=== PATIENT | male | born 1955 | race Caucasian/White ===

== ENCOUNTER 2022-11-24 17:25 | Inpatient (IN) | payer BC ==
[~2022-11-24] VITALS: Ht 182.9 cm; Wt 134.2 kg
--- NOTE | 2022-11-24 20:08 | NUR ---
PATIENT IS A DIRECT ADMIT ARRIVED VIA AMBULANCE [facility]. ONE ASSIST TRANSFER FROM [facility] TO BED. ALERT AND ORIENTED. DENIES CHEST PAIN, SOB, AND N/V. ON ROOM AIR. ORIENTED TO ROOM AND CALL LIGHT. WAITING FOR DR ROBERT ASSESSMENT AND ORDERS.
[2022-11-24 20:41] VITALS: BP 114/50
[2022-11-24 22:19] LABS: Hematocrit 39.1 % (37.0-53.0); Hemoglobin 13.6 g/dL (13.5-17.5); Mean Corpuscular HGB Conc 34.8 g/dL (31.5-36.5); Mean Corpuscular Volume 89 fL (80-100); Mean Platelet Volume 10.9 fL (9.1-12.4); Platelet Count 238 K/mm3 (150-400); RDW Coefficient Variation 13.2 % (11.7-14.2); RDW Standard Deviation 43.6 fL (35.1-46.3); Red Blood Cell Count 4.39 M/mm3 (4.30-5.90)
[2022-11-24 22:40] LABS: Albumin, Blood 1.6 g/dL (3.4-5.0); Albumin/Globulin Ratio 0.3 (0.8-1.8); Bilirubin, Total 2.3 mg/dL (0.1-1.0); Bun/Creatinine Ratio 22.1 (12.0-20.0); Calcium, Blood 8.2 mg/dL (8.5-10.1); Creatinine, Blood 3.08 mg/dL (0.60-1.20); Globulin, Blood 4.9 g/dL (2.2-4.0); Potassium, Blood 3.7 mmol/L (3.5-5.5); Total Protein, Blood 6.5 g/dL (6.4-8.2)
[2022-11-24 22:48] LABS: BAND PERCENT MAN 14 % (0-8); BASOPHILS PERCENT MAN 0 % (0-2); EOSINOPHILS PERCENT MAN 0 % (0-6); LYMPHOCYTES ABSOLUTE MAN 1.65 K/mm3 (0.84-5.20); LYMPHOCYTES PERCENT MAN 6 % (21-46); MONOCYTES ABSOLUTE MAN 0.27 K/mm3 (0.16-1.47); MONOCYTES PERCENT MAN 1 % (4-13); MYELOCYTE ABSOLUTE MAN 0.55 K/mm3 (0.00-0.00); MYELOCYTE PERCENT MAN 2 % (0-0); NEUTROPHILS ABSOLUTE MAN 25.11 K/mm3 (1.96-9.15); SEG NEUTROPHILS PERCENT MAN 77 % (41-73); TOTAL CELLS COUNTED 100
--- NOTE | 2022-11-24 23:35 | NUR ---
RESIDENT DR JESSENIA WOLFF IN ROOM FOR ASSESSMENT AND ORDERS. CRITICAL LAB cH: HYUN 3.4 CALLED INTO HOSPITALIST KAILASH ALTAMIRANO AND REPORTS CONTINUE TO MONITOR. IV VANCO INFUSING. WCTM.
--- NOTE | 2022-11-25 04:10 | NUR ---
SHIFT SUMMARY PATIENT HAD NO ACUTE CHANGES. DIRECT ADMIT FROM ANA. AXOX 4, BEDREST, AND ANXIOUS. NEW PIV PLACED AND IV ABX INFUSED. ON ROOM AIR. RESIDENT DR TONI WOLFF IN FOR ASSESSMENT. DENIES CHEST PAIN, SOB, AND N/V. VSS/AFEBRILE. USES URINAL AT BEDSIDE. BLE CELLULITIS BELOW KNEES WITH MILD WEEPING. REPORTS LIVES WITH SPOUSE IN REEDSPORT. ABLE TO SLEEP MOST OF SHIFT. CALL LIGHT IN REACH. BED IN LOWEST POSITION. WILL CONTINUE TO MONITOR UNTIL DAY SHIFT NURSE ASSUMES CARE.
[2022-11-25 04:20] VITALS: BP 91/54
[2022-11-25 08:05] VITALS: BP 111/95
[2022-11-25 09:56] LABS: Calcium, Blood 7.9 mg/dL (8.5-10.1); Creatinine, Blood 3.04 mg/dL (0.60-1.20); Potassium, Blood 3.5 mmol/L (3.5-5.5)
[2022-11-25 10:15] LABS: Source, Urine Straight Cath
[2022-11-25 10:24] LABS: Bilirubin, Urine Neg (Neg); Blood, Urine 3+ (Neg); Glucose Qualitative, Urine Neg (Neg); Ketones, Urine Neg (Neg); Leukocyte Esterase, Urine Neg (Neg); Nitrite, Urine Neg (Neg); Protein, Urine 2+ (Neg); Specific Gravity, Urine 1.015 (1.003-1.022); Urobilinogen, Urine 1+ (Normal)
[2022-11-25 10:45] LABS: Appearance, Urine Clear (Clear); Color, Urine Yellow (P-Yellow)
[2022-11-25 10:47] LABS: Bacteria Mod /hpf; Mucus Mod (0-Heavy); Squamous Epithelial Cells Mod /hpf (Few); White Blood Cells, Urine 0-2 /hpf (0-5)
[2022-11-25 13:08] LABS: Magnesium, Blood 2.1 mg/dL (1.6-2.4); Phosphorus, Blood 4.6 mg/dL (2.5-4.9); Thyroid Stimulating Hormone 0.628 uIU/mL (0.360-4.800); Vancomycin, Random 26.4 ug/mL
[2022-11-25 16:25] VITALS: BP 93/57
--- NOTE | 2022-11-25 18:19 | NUR ---
PATIENT AOX4 RESTING IN BED, 2 PERSON MAX ASSIST, USES URINAL INDEPENDENTLY, BED INLOW POSITION, CALL LIGHT IN REACH. PATIENT CALLS APPROPRIATELY. C/O HEADACHE AND LEG PAIN THROUGHOUT DAY, MANAGED PER EMAR. WILL CONTINUE TO MONITOR.
[2022-11-25 19:33] VITALS: BP 107/92
[2022-11-25 20:21] LABS: Base Excess Venous -5.3 mmol/L; Bicarbonate Venous 20.4 mmol/L (24.0-30.0); PCO2 Venous 35.2 mmHg (38-42); pH Blood Venous 7.37 (7.34-7.37)
[2022-11-25 21:47] LABS: Magnesium, Blood 2.2 mg/dL (1.6-2.4); Potassium, Blood 3.3 mmol/L (3.5-5.5)
[2022-11-25 22:12] VITALS: BP 95/60
[2022-11-25 22:30] VITALS: BP 105/74
--- NOTE | 2022-11-25 22:34 | NUR ---
NURST NOTE--PHYSICIAN CONTACT PT HAVING SOFT BLOOD PRESSURE, ELEVATED HR, AND INCREASED RESPIRATIONS. CALL TO COMMUNITY DEVELOPMENT SPECIALIST DR LINDER X3; NEW ORDER FOR TELE AND VBG. CALL DR Ivey/RESULTS. NEW ORDER FOR IV METOPROLO 2.5-5MG AND EKG--NOTIFED DR OF EKG RESULTS. NEW ORDER FOR POTASSIUM 40 MEQ PO NOW AND 40 POT IV NOW. ORDER FOR TROPONIN LEVELS NOW AND IN 2HRS. ADVISED PT IS HAVING INDIGESTION AND PERSISTENT BLELCHING, PALE, AND UPDATED CURRENT VITALS. DR GOMEZ WOULD COME AND SEE PATIENT.
[2022-11-26] VITALS (44 sets, daily range): BP systolic 73–131; BP diastolic 40–95
[2022-11-26 00:55] LABS: Hematocrit 34.5 % (37.0-53.0); Mean Corpuscular HGB 31.3 pg (26.0-34.0); Mean Corpuscular HGB Conc 34.8 g/dL (31.5-36.5); Mean Corpuscular Volume 90 fL (80-100); Mean Platelet Volume 11.3 fL (9.1-12.4); Platelet Count 284 K/mm3 (150-400); RDW Coefficient Variation 13.2 % (11.7-14.2); RDW Standard Deviation 43.7 fL (35.1-46.3); Red Blood Cell Count 3.83 M/mm3 (4.30-5.90); White Blood Cell Count 26.34 K/mm3 (4.00-11.30)
[2022-11-26 01:16] LABS: Albumin, Blood 1.4 g/dL (3.4-5.0); Albumin/Globulin Ratio 0.3 (0.8-1.8); Bilirubin, Total 1.5 mg/dL (0.1-1.0); Bun/Creatinine Ratio 30.7 (12.0-20.0); Calcium, Blood 7.8 mg/dL (8.5-10.1); Globulin, Blood 4.8 g/dL (2.2-4.0); Potassium, Blood 3.4 mmol/L (3.5-5.5); Total Protein, Blood 6.2 g/dL (6.4-8.2)
[2022-11-26 01:19] LABS: BAND PERCENT MAN 16 % (0-8); BASOPHILS PERCENT MAN 0 % (0-2); EOSINOPHILS PERCENT MAN 0 % (0-6); LYMPHOCYTES ABSOLUTE MAN 1.84 K/mm3 (0.84-5.20); LYMPHOCYTES PERCENT MAN 7 % (21-46); MONOCYTES ABSOLUTE MAN 0.79 K/mm3 (0.16-1.47); MONOCYTES PERCENT MAN 3 % (4-13); MYELOCYTE ABSOLUTE MAN 0.26 K/mm3 (0.00-0.00); MYELOCYTE PERCENT MAN 1 % (0-0); NEUTROPHILS ABSOLUTE MAN 23.17 K/mm3 (1.96-9.15); PLASMA CELL ABSOLUTE MAN 0.26 K/mm3 (0.00-0.00); PLASMA CELLS PERCENT MAN 1 % (0-0); SEG NEUTROPHILS PERCENT MAN 72 % (41-73); TOTAL CELLS COUNTED 100
[2022-11-26 03:31] LABS: Hematocrit 30.9 % (37.0-53.0); Hemoglobin 11.3 g/dL (13.5-17.5); Mean Corpuscular HGB 31.7 pg (26.0-34.0); Mean Corpuscular HGB Conc 36.6 g/dL (31.5-36.5); Mean Corpuscular Volume 87 fL (80-100); Mean Platelet Volume 11.4 fL (9.1-12.4); Platelet Count 290 K/mm3 (150-400); RDW Coefficient Variation 13.1 % (11.7-14.2); RDW Standard Deviation 41.6 fL (35.1-46.3); Red Blood Cell Count 3.56 M/mm3 (4.30-5.90); White Blood Cell Count 27.54 K/mm3 (4.00-11.30)
[2022-11-26 03:39] LABS: Anion Gap 10 mmol/L (6-16); Blood Urea Nitrogen 89 mg/dL (8-24); Bun/Creatinine Ratio 30.6 (12.0-20.0); CO2, Blood 21 mmol/L (21-32); Calcium, Blood 7.7 mg/dL (8.5-10.1); Chloride, Blood 99 mmol/L (98-108); Creatinine, Blood 2.91 mg/dL (0.60-1.20); Glomerular Filtration Rate 23 (60-); Glucose, Blood 93 mg/dL (70-99); Potassium, Blood 3.9 mmol/L (3.5-5.5); Sodium, Blood 130 mmol/L (136-145); Vancomycin, Random 19.6 ug/mL
[2022-11-26 03:58] LABS: BAND PERCENT MAN 14 % (0-8); BASOPHILS PERCENT MAN 0 % (0-2); EOSINOPHILS PERCENT MAN 0 % (0-6); LYMPHOCYTES PERCENT MAN 4 % (21-46); MONOCYTES PERCENT MAN 4 % (4-13); MYELOCYTE ABSOLUTE MAN 0.55 K/mm3 (0.00-0.00); MYELOCYTE PERCENT MAN 2 % (0-0); NEUTROPHILS ABSOLUTE MAN 24.51 K/mm3 (1.96-9.15); PLASMA CELL ABSOLUTE MAN 0.27 K/mm3 (0.00-0.00); PLASMA CELLS PERCENT MAN 1 % (0-0); SEG NEUTROPHILS PERCENT MAN 75 % (41-73); TOTAL CELLS COUNTED 100
--- NOTE | 2022-11-26 06:00 | NUR ---
SHIFT SUMMARY ASSUMED CARE OF PATIENT TRANSFER FROM MEDICAL FLOOR FOR HYPOTENSION. UPON ARRIVAL, PATIENT A/0X4, RESTLESS, COOPERATIVE. NORMOTENSIVE; SBP 100-120S. FINISHED 250CC BOLUS THAT WAS STARTED ON PREVIOUS UNIT. CONTINUES IN AFIB, HR 90-120S. AFEBRILE. ROOM AIR. MAR WITH WHEEZING AND TACHYPNEA. ADEQUATE URINE OUTPUT VIA URINAL. BLE SWOLLEN, REDDENED, PAINFUL. GIVEN PRN OXYCODONE X1 WITH RELIEF. DAUGHTER CALLED AND VOICEMAIL LEFT PERTAINING TO PATIENT'S TRANSFER TO ICU. PATIENT STABLE AT THIS TIME.
--- NOTE | 2022-11-26 07:10 | NUR ---
Assumed care. Report received from amrik TOPETE. Pt resting in bed ATT, on RA, no acute needs. Will continue to monitor.
--- NOTE | 2022-11-26 18:13 | NUR ---
Shift summary. Pt continues alert and oriented. Pt elected to stay in bed this shift, pt very painful with movement, see EMAR for pain meds. Pt reported the most pain relief with roxicodone administration. BLE remain swollen and red with skin sloughing off, LLE affected more than right. Pt started on po carvedilol with good response, HR below 100 ATT. All other vital signs within normal parameters, no acute events. See assessment for further details. Will continue to monitor and report off to amrik TOPETE.
[2022-11-27] VITALS (8 sets, daily range): BP systolic 95–134; BP diastolic 48–75
--- NOTE | 2022-11-27 04:32 | NUR ---
SHIFT SUMMARY/TRANSFER OF CARE AT START OF SHIFT, PATIENT ALERT AND ORIENTED X4. PLEASANT, COOPERATIVE. MONITOR SHOWING AFIB, HR 80S. SBP 90-100S; MAPs >65. CONTINUES TO HAVE +3/+4 EDEMA TO BLE. AFEBRILE. ROOM AIR. DYSPNEA ON EXERTION WITH EXP WHEEZES. C/O NAUSEA, GIVEN ZOFRAN X1. PROGRESSED TO LOWER ABDOMINAL PAIN/CRAMPING, WHICH WAS RELIEVED WITH PRN FENTANYL. ADEQUATE URINE OUTPUT VIA FORTUNE. DRESSING TO RIGHT UPPER THIGH CHANGED. OXYCODONE MANAGING LOWER EXTREMITY PAIN WELL, PER PATIENT. TRANSFERRED TO PCU 17 @ 0300 IN NO ACUTE DISTRESS. NO FURTHER CONCERNS.
[2022-11-27 04:35] LABS: Hematocrit 30.3 % (37.0-53.0); Hemoglobin 10.6 g/dL (13.5-17.5); Mean Corpuscular HGB 30.9 pg (26.0-34.0); Mean Corpuscular Volume 88 fL (80-100); Platelet Count 339 K/mm3 (150-400); RDW Coefficient Variation 13.3 % (11.7-14.2); RDW Standard Deviation 43.5 fL (35.1-46.3); Red Blood Cell Count 3.43 M/mm3 (4.30-5.90); White Blood Cell Count 23.76 K/mm3 (4.00-11.30)
[2022-11-27 04:55] LABS: Bun/Creatinine Ratio 39.3 (12.0-20.0); Creatinine, Blood 2.57 mg/dL (0.60-1.20)
[2022-11-27 05:38] LABS: BAND PERCENT MAN 6 % (0-8); BASOPHILS PERCENT MAN 0 % (0-2); EOSINOPHILS ABSOLUTE MAN 0.23 K/mm3 (0.00-0.68); EOSINOPHILS PERCENT MAN 1 % (0-6); LYMPHOCYTES ABSOLUTE MAN 1.66 K/mm3 (0.84-5.20); LYMPHOCYTES PERCENT MAN 7 % (21-46); METAMYELOCYTE ABSOLUTE MAN 0.23 K/mm3 (0.00-0.00); METAMYELOCYTE PERCENT MAN 1 % (0-0); MONOCYTES ABSOLUTE MAN 2.13 K/mm3 (0.16-1.47); MONOCYTES PERCENT MAN 9 % (4-13); NEUTROPHILS ABSOLUTE MAN 19.48 K/mm3 (1.96-9.15); SEG NEUTROPHILS PERCENT MAN 76 % (41-73); TOTAL CELLS COUNTED 100
--- NOTE | 2022-11-27 17:49 | NUR ---
SHIFT SUMMARY; ASSUMED CARE AT 0700. A/A/OX4 DURING SHIFT. PLEASANT AND COOPERATIVE WITH CARE. REPOSITIONS SELF IN BED, USES URINAL AT BEDSIDE. BILATERAL LOWER LEG REDNESS WITH EDEMA. MEDICATED PER EMAR. MINIMAL APPETITE DURING SHIFT. PO FLUIDS WITHOUT DIFFICULTY. NO ACUTE CHANGES, WILL CONTINUE TO MONITOR AND TREAT UNTIL CHANGE OF SHIFT.
[2022-11-28] VITALS (7 sets, daily range): BP systolic 95–135; BP diastolic 52–94
[2022-11-28 03:36] LABS: Base Excess Venous -4.7 mmol/L; Bicarbonate Venous 21.3 mmol/L (24.0-30.0); PCO2 Venous 25.7 mmHg (38-42); pH Blood Venous 7.47 (7.34-7.37)
[2022-11-28 03:46] LABS: Hematocrit 29.9 % (37.0-53.0); Hemoglobin 10.3 g/dL (13.5-17.5); Mean Corpuscular HGB 30.7 pg (26.0-34.0); Mean Corpuscular HGB Conc 34.4 g/dL (31.5-36.5); Mean Corpuscular Volume 89 fL (80-100); Mean Platelet Volume 10.8 fL (9.1-12.4); Platelet Count 387 K/mm3 (150-400); RDW Coefficient Variation 13.5 % (11.7-14.2); RDW Standard Deviation 44.1 fL (35.1-46.3); Red Blood Cell Count 3.36 M/mm3 (4.30-5.90); White Blood Cell Count 22.56 K/mm3 (4.00-11.30)
[2022-11-28 04:10] LABS: Bun/Creatinine Ratio 45.9 (12.0-20.0); Calcium, Blood 7.9 mg/dL (8.5-10.1); Creatinine, Blood 2.29 mg/dL (0.60-1.20); Potassium, Blood 3.7 mmol/L (3.5-5.5)
[2022-11-28 04:16] LABS: BAND PERCENT MAN 14 % (0-8); BASOPHILS PERCENT MAN 0 % (0-2); EOSINOPHILS PERCENT MAN 0 % (0-6); LYMPHOCYTES ABSOLUTE MAN 1.12 K/mm3 (0.84-5.20); LYMPHOCYTES PERCENT MAN 5 % (21-46); MONOCYTES ABSOLUTE MAN 2.03 K/mm3 (0.16-1.47); MONOCYTES PERCENT MAN 9 % (4-13); SEG NEUTROPHILS PERCENT MAN 72 % (41-73); TOTAL CELLS COUNTED 100
--- NOTE | 2022-11-28 05:12 | NUR ---
SHIFT SUMMARY PT IS A/Ox4 AND IS COOPERATIVE WITH CARE PROVIDED BY MEMBERS OF STAFF. ANSWERS QUESTIONS APPROPRIATELY AND ABLE TO MAKE NEEDS KNOWN. CAN BE ANXIOUS AT TIMES. NO ACUTE EVENTS OVER NIGHT FOR PT WAS ABLE TO GET INTERMITTENT SLEEP. INTERMITTENT COMPLAINTS OF PAIN REGUARDING HIS LEGS/CELLUITITS. PAIN HAS BEEN MANAGED ORDERED VIA EMAR. ABLE TO MAINTAIN SPO2 >92% ON RA WITH OCCASIONAL C/O SOB, ESPECIALLY WITH AMBULATION. CARDIAC PETERS, REMAINED IN AFIB RHYTHM 80-100'S WITH NO COMPLAINTS CP OR PRESSURE. BP STABLE. ABLE TO IND. VOID IN URINAL WELL REPOSITION HIMSELF IN BED. PT STATES HE IS EAGER TO GO HOME. NO NEW ORDERS AT THIS TIME, WILL REPORT TO DAYSHIFT RN. JOSI GARBER T/O THE SHIFT
--- NOTE | 2022-11-28 17:18 | NUR ---
SHIFT SUMMARY: PT A&Ox4, COOPERATIVE W/CARE, ABLE TO MAKE NEEDS KNOWN, APPEARS ANXIOUS AT TIMES RE: PROGNOSIS. O2 SATS >93% ON RA, PT DENIES SOB AT REST, SOME DYSPNEA NOTED W/EXERTION. AFIB ON MONITOR W/RATE 80s-90s, PT DENIES CP. BOTH LOWER EXTREMITIES FROM KNEES DOWN ARE BRIGHT RED, SWOLLEN, WARM AND PAINFUL TO TOUCH AND THE RIGHT UPPER THIGH ALSO HAS AN AREA THAT IS BRIGHT RED AND SWOLLEN. PROVIDER IS AWARE, NEW ORDERS HAVE BEEN PLACED. ULTRASOUND COMPLETED AT BEDSIDE AND PT TO IMAGING DEPT TODAY FOR CT SCAN W/CONTRAST. PT AMBULATED TO RESTROOM W/FWW AND SBA FOR BM AND SHOWER, TOLERATED WELL. AT THIS TIME, PT RESTING QUIETLY IN ROOM W/CALL LIGHT IN REACH. WILL CONTINUE TO MONITOR AND TREAT ACCORDINGLY UNTIL CHANGE OF SHIFT.
[2022-11-29 04:05] VITALS: BP 102/60
[2022-11-29 04:34] LABS: Hematocrit 28.5 % (37.0-53.0); Mean Corpuscular HGB 31.3 pg (26.0-34.0); Mean Corpuscular HGB Conc 35.1 g/dL (31.5-36.5); Mean Corpuscular Volume 89 fL (80-100); Mean Platelet Volume 10.6 fL (9.1-12.4); Platelet Count 491 K/mm3 (150-400); RDW Coefficient Variation 13.5 % (11.7-14.2); RDW Standard Deviation 44.7 fL (35.1-46.3); White Blood Cell Count 22.46 K/mm3 (4.00-11.30)
--- NOTE | 2022-11-29 05:00 | NUR ---
SHIFT SUMMARY PT A/Ox4 AND COOPERATIVE WITH CARE PROVIDED BY MEMBERS OF STAFF. ANSWERS QUESTIONS APPROPRIATLY AND ABLE TO MAKE NEEDS KNOWN. CAN BE ANXIOUS AT TIME, BUT ABLE TO CALM DOWN ONCE TREATMENT/CARE IS EXPLAINED TO PT. MAINTAINS SPO2 >92% ON RA WITH SOB/INCREASED RR NOTED WITH EXERTION. CARDIAC PETERS, REMAINS IN AFIB WITH HR RANGING 80-90'S. NO COMPLAINTS OF CP OR PRESSURE T/O THE SHIFT. BOTH LOWER EXTREM. REMAIN REDDENED, SWOLLEN AND WARM/TENDER TO THE TOUCH DUE TO PT'S CELLULITIS. PAIN HAS BEEN MANAGED WELL ORDERED VIA EMAR. ABLE TO TOLERATE ABULATION WITH FWW FOR SHORT PERIODS OF TIME. NO NEW ORDERS AT THIS TIME, WILL REPORT TO DAYSHIFT RN. SHIRLENE, JOSI T/O THE SHIFT
[2022-11-29 05:02] LABS: Albumin, Blood 1.4 g/dL (3.4-5.0); Albumin/Globulin Ratio 0.3 (0.8-1.8); Bilirubin, Total 0.9 mg/dL (0.1-1.0); Bun/Creatinine Ratio 45.7 (12.0-20.0); Calcium, Blood 7.8 mg/dL (8.5-10.1); Creatinine, Blood 2.3 mg/dL (0.60-1.20); Globulin, Blood 5.4 g/dL (2.2-4.0); Potassium, Blood 4.1 mmol/L (3.5-5.5); Total Protein, Blood 6.8 g/dL (6.4-8.2)
[2022-11-29 05:23] LABS: BAND PERCENT MAN 2 % (0-8); BASOPHILS PERCENT MAN 0 % (0-2); EOSINOPHILS ABSOLUTE MAN 0.44 K/mm3 (0.00-0.68); EOSINOPHILS PERCENT MAN 2 % (0-6); LYMPHOCYTES % ATYPICAL MANUAL 1 % (0-0); LYMPHOCYTES ABSOLUTE MAN 2.24 K/mm3 (0.84-5.20); LYMPHOCYTES PERCENT MAN 9 % (21-46); MONOCYTES ABSOLUTE MAN 1.34 K/mm3 (0.16-1.47); MONOCYTES PERCENT MAN 6 % (4-13); NEUTROPHILS ABSOLUTE MAN 18.41 K/mm3 (1.96-9.15); SEG NEUTROPHILS PERCENT MAN 80 % (41-73); TOTAL CELLS COUNTED 100
[2022-11-29 07:58] VITALS: BP 112/67
--- NOTE | 2022-11-29 09:58 | NUR ---
ASSUMED CARE OF PT, RECEIVED REPORT FROM YOSELYN CHRISTIANSEN. PT RESTING IN BED, EXPRESSING DESIRE TO GO HOME, STATES HE IS MISSING HIS BELONGINGS AND HOME ENVIRONMENT. THIS RN AND PT's SISTER AT BEDSIDE, REINFORCING PT's CURRENT ILLNESS AND NEED FOR TREATMENT. PT V/U, IS AGREEABLE TO STAY AT THIS TIME. NO ACUTE DISTRESS, CALL LIGHT WITHIN REACH.
--- NOTE | 2022-11-29 10:03 | NUR ---
ASSUMED CARE OF PATIENT AT 0800 FROM CHENTE MCPHERSON RN. ALERT AND ORIENTED AND ANXIOUS. RESTING IN BED. REPORTED FEELING COLD, BLANKETS PROVIDED AND ROOM TEMP WARM. BLE RED, SWOLLEN, AND HOT FROM KNEES TO TOES. PITTING EDEMA WITH PAIN, N/T. PATIENT REPORTS FEELING ANXIOUS AND HE WANTS TO GO HOME. DISCUSSED CURRENT ILLNESS AND NEED TO ADEQUATELY TREAT INFECTION BEFORE DISCHARGE. PATIENT AGREEABLE TO WAIT AND DISCUSS WITH DR SMALLWOOD. SPOKE WITH DRYING ROOM ATTENDANT JANETH MIN WHO CALLED [facility] IN [place] WHERE PATIENT WAS PREVIOUSLY FOLLOWED. HE HAS NOT BEEN SEEN IN 4 YEARS. APPLICATION TO THE CLINIC WAS PROVIDED TO PATIENT. HE STATES HE HAS NOT SEEN A PCP IN YEARS AND HAS NOT BEEN TAKING ANY MEDICATION FOR HIS VARIOUS CHRONIC DIAGNOSES. REPORT GIVEN TO ANDRES LEE RN AT 0945.
[2022-11-29 11:57] VITALS: BP 143/73
--- NOTE | 2022-11-29 17:22 | NUR ---
Received call from Pt's primary RN Joyce reporting Pt would benefit from code status discussion. Pt had discussion with family earlier today and there where some disagreements with Pt's wishes and family wishes. Pt resting in bed and is A&OX4. Engaged in therpaeutic conversation regarding code status wishes. Educated on life sustaining treatments including risks and implications to CPR/Intubation. Pt reports wanting to be DNR. He states "I only want to once". Continued supportive conversation. Pt reports his daughter struggles with his wishes. Encouraged Pt to continue having conversations and the importance of supporting his decision to be DNR. Pt expresses wishes to complete an advanced directive and POLST but would like assistance with this tomorrow. He reports feeling to tired to complete today. Ended visit to allow Pt to rest. Spoke with Dr Tillman and placed order for DNR per V/O from Dr Tillman. Palliative Care will F/U with Pt tomorrow to assist with completing POLST and AD.
[2022-11-29 17:45] VITALS: BP 162/83
--- NOTE | 2022-11-29 17:55 | NUR ---
SHIFT SUMMARY TOOK OVER CARE FOR PT AT APPROX 1400. PT A&OX4. SP02>90% ON RA. TELEMETRY SHOWS AFIB W/ PVC'S HR MOSTLY 90'S. VOIDING IN URINAL AT BEDSIDE. C/O OF BILAT LOWER LEG PAIN 03/30. MEDICATED PER EMAR. DIETITIAN IN ROOM THIS AFTERNOON TO EDUCATE. PT EXPRESSED TO AIDE AND TO DIETITIAN DESIRE TO CHANGE CODE STATUS TO DNR. CALL PLACED TO PALLIATIVE CARE. APPRECIATE PALLIATIVE CARE, VERNA, TO ROOM WITH PT, PT'S STATUS CHANGED, SEE ORDERS AND PALLIATIVE CARE NOTE. DNR WRISTBAND PLACED ON WRIST, PT STATES, "OHH IM GOING TO BE IN TROUBLE TOMORROW." WHEN PROMPTED, PT EXPLAINS HIS FAMILY DOES NOT WANT HIM TO BE DNR. CALL LIGHT IN REACH. PT EATING DINNER CURRENTLY IN BED.
[2022-11-29 20:01] VITALS: BP 125/56
--- NOTE | 2022-11-30 05:54 | NUR ---
PT TREATED FOR PAIN TWICE, WITHDRAWN AND RELUCTANT TO PARTICIPATE IN CARE, ARGUING WITH SPOUSE ON THE PHONE AND REFUSES MORNING VS, GOOD UO, BLE EDEMA IMPROVED SLIGHTLY, VSS, WILL CONTINUE TO MONITOR
[2022-11-30 07:54] LABS: BASOPHILS ABSOLUTE AUTO 0.08 K/mm3 (0.00-0.23); BASOPHILS PERCENT AUTO 0 % (0-2); EOSINOPHILS ABSOLUTE AUTO 0.09 K/mm3 (0.00-0.68); EOSINOPHILS PERCENT AUTO 1 % (0-6); Hematocrit 29.2 % (37.0-53.0); Hemoglobin 10.2 g/dL (13.5-17.5); IMMATURE GRAN ABSOLUTE AUTO 1.23 K/mm3 (0.00-0.10); IMMATURE GRAN PERCENT AUTO 6 % (0-1); LYMPHOCYTES PERCENT AUTO 12 % (21-46); MONOCYTES ABSOLUTE AUTO 1.09 K/mm3 (0.16-1.47); MONOCYTES PERCENT AUTO 6 % (4-13); Mean Corpuscular HGB 31.2 pg (26.0-34.0); Mean Corpuscular HGB Conc 34.9 g/dL (31.5-36.5); Mean Corpuscular Volume 89 fL (80-100); Mean Platelet Volume 9.9 fL (9.1-12.4); NEUTROPHILS ABSOLUTE AUTO 14.68 K/mm3 (1.96-9.15); NEUTROPHILS PERCENT AUTO 75 % (41-73); Platelet Count 601 K/mm3 (150-400); RDW Coefficient Variation 13.6 % (11.7-14.2); RDW Standard Deviation 44.8 fL (35.1-46.3); Red Blood Cell Count 3.27 M/mm3 (4.30-5.90); White Blood Cell Count 19.47 K/mm3 (4.00-11.30)
[2022-11-30 08:10] LABS: Vancomycin, Trough 11.5 ug/mL (5.0-10.0)
[2022-11-30 08:17] LABS: Bun/Creatinine Ratio 48.6 (12.0-20.0); Calcium, Blood 7.9 mg/dL (8.5-10.1); Creatinine, Blood 1.79 mg/dL (0.60-1.20); Potassium, Blood 3.8 mmol/L (3.5-5.5)
--- NOTE | 2022-11-30 10:49 | NUR ---
TRANSFER/ASSUMPTION OF CARE: PATIENT IS ALERT AND ORIENTED, ANXIOUS, BUT ABLE TO MAKE NEEDS KNOWN. PATIENT ADVOCATE CONSULTED FOR ADL'S AND CARE. PATIENT ENDORSES NUMBNESS IN BILATERAL FEET. INCREASED EXERTIONAL WORKLOAD SINCE PREVIOUS CARE THIS COMPUTER TECHNICAL SUPPORT SPECIALIST HAD WITH PATIENT. PATIENT PAIN CONTROLLED WITH EMAR MEDS. BED ALARM FOR SAFETY PATIENT IS AFIB WITH RBB, 90-100'S HR INCREASED WITH INCREASED ANXIETY, HAD SOME CHEST PAIN WITH LYING, EKG SHOWED NO CHANGES. PROVIDER AWARE, NO COMPLAINTS FURTHER OF THIS PAIN TO THIS RN. NORMOTENSIVE. DIURESING WELL. PATIENT ON RA NO CONCERN. BOWEL CARE ON EMAR. PATIENT USES URINAL AT BEDSIDE. CONCERNS: PATIENT MAY HAVE EDUCATIONAL AND SELF CARE DEFICIT. RECOMMENDED PT/OT/ AND WOUND. NEW DIAGNOSIS WITH INCREASED AMOUNT OF HOME MEDS. NO CONCERNS FROM PATITENT AT THIS TIME. SHOWERED TODAY.
--- NOTE | 2022-11-30 11:13 | NUR ---
PATIENT TRANSFERRED FROM PCU 17 TO ROOM 360, REPORTS RECEIVED FROM YOSELYN DOWNS. PATIENT A/OX4, ABLE TO TRANSFER WITH SBA TO BED. VSS TODAY, ON RA. REPORTS ANXIETY, XANAX ORDERED TO TREAT. AND SON AT BEDSIDE. ORIENTED TO ROOM AND USE OF CALL LIGHT. PATIENT DENIES ANY NEEDS AT THIS TIME. INSTRUCTED TO CALL FOR ASSISTANCE.
[2022-11-30 14:58] VITALS: BP 117/65
--- NOTE | 2022-11-30 17:57 | NUR ---
PATIENT TRANSFERRED FROM PCU TODAY. VSS THIS SHIFT. MAINTAINING SATS ON RA. TOLERATING RENAL DIET. CALM AND COOPERATIVE WITH CARE AND CALLS APPORPRIATELY. UP WITH FWW AND 1 ASSIST. PT ORDERS PLACED TODAY. OXYCODONE GIVEN X2 THIS SHIFT TO TREAT BLE PAIN. XANAX GIVEN X1 FOR ANXIETY WITH STATED RELIEF.
[2022-11-30 19:56] VITALS: BP 99/57
[2022-11-30 21:27] VITALS: BP 113/52
[2022-12-01 03:40] VITALS: BP 137/86
[2022-12-01 04:56] LABS: BASOPHILS ABSOLUTE AUTO 0.04 K/mm3 (0.00-0.23); BASOPHILS PERCENT AUTO 0 % (0-2); EOSINOPHILS ABSOLUTE AUTO 0.12 K/mm3 (0.00-0.68); EOSINOPHILS PERCENT AUTO 1 % (0-6); Hemoglobin 9.9 g/dL (13.5-17.5); IMMATURE GRAN ABSOLUTE AUTO 0.57 K/mm3 (0.00-0.10); IMMATURE GRAN PERCENT AUTO 4 % (0-1); LYMPHOCYTES ABSOLUTE AUTO 1.69 K/mm3 (0.84-5.20); LYMPHOCYTES PERCENT AUTO 12 % (21-46); MONOCYTES ABSOLUTE AUTO 0.88 K/mm3 (0.16-1.47); MONOCYTES PERCENT AUTO 6 % (4-13); Mean Corpuscular HGB 31.1 pg (26.0-34.0); Mean Corpuscular HGB Conc 34.1 g/dL (31.5-36.5); Mean Corpuscular Volume 91 fL (80-100); Mean Platelet Volume 9.5 fL (9.1-12.4); NEUTROPHILS ABSOLUTE AUTO 10.68 K/mm3 (1.96-9.15); NEUTROPHILS PERCENT AUTO 76 % (41-73); Platelet Count 613 K/mm3 (150-400); RDW Coefficient Variation 13.6 % (11.7-14.2); RDW Standard Deviation 45.5 fL (35.1-46.3); Red Blood Cell Count 3.18 M/mm3 (4.30-5.90); White Blood Cell Count 13.98 K/mm3 (4.00-11.30)
[2022-12-01 05:38] LABS: Bun/Creatinine Ratio 43.9 (12.0-20.0); Calcium, Blood 7.5 mg/dL (8.5-10.1); Creatinine, Blood 1.57 mg/dL (0.60-1.20); Potassium, Blood 3.4 mmol/L (3.5-5.5)
--- NOTE | 2022-12-01 05:47 | NUR ---
SHIFT SUMMARY PT LAYING IN BED DURING BEDSIDE REPORT- PT REPORTED PAIN IN BILAT LEGS- 1955 = BP DECREASED AT 99/57- RECHECKED WITH MEDICATION PASS- 2126= BP INCREASED TO 113/52 PT REPORTED PAIN AT 2/10 AND TOLERABLE AND CHANGED MIND AND REFUSED OXYCODONE OFFERED- PT REQUESTED XANAX ONLY-PT TOOK MEDICATIONS WITHOUT PROBLEMS- pt slept t/o night- pt used urinal without problems t/o night - bed low position, call light within reach, bed alarm in place d/t xanax
[2022-12-01 07:47] VITALS: BP 116/54
[2022-12-01 15:18] VITALS: BP 103/63
--- NOTE | 2022-12-01 17:57 | NUR ---
NO ACUTE CHANGES THIS SHIFT. PATINET ENCOURAGED TO BE UP TO CHAIR FOR MEALS. PATIENT WAS UP FOR BREAKSFAST, BUT REFUSED TO GET UP FOR LUNCH AND DINNER. REPORTS BRUNING TO BLE THAT HURTS MUCH WORSE WHEN OOB. MEDICATED WITH OXYCODONE WITH GOOD RELIEF PER PATIENT. TOLERATING RENAL DIET. ANCEF AND VANCO GIVEN TO TREAT CELLULITIS OF BLE. REPORTS ANXIETY AND XANAX GIVEN X1 TO TREAT. CARE MANAGEMENT WORKING WITH PATIENT AND FAMILY FOR DISCHARGE PLAN AND TO OBTAIN A PCP. PATIENT WORKED WITH PT TODAY.
[2022-12-01 19:49] VITALS: BP 101/79
[2022-12-02 02:54] VITALS: BP 89/46
[2022-12-02 03:40] VITALS: BP 90/47
--- NOTE | 2022-12-02 05:37 | NUR ---
SHIFT SUMMARY PT ASLEEP IN BED DURING BEDSIDE ROUNDS, PT'S DINNER ON BEDSIDE TABLE- REPORT THAT PT WAS REMINDED THAT HIS DINNER WAS AT BEDSIDE TWICE AND REPORTED THAT HE WASN'T HUNGRY AT THAT TIME- PT HAD EPISODE OF DIARRHEA AT BEGINNING OF SHIFT- PT AMBULATED WITH FWW AND SBA - PT SLOW TO AMBULATE- PT REQUESTED XANAX WITH HS MEDS - PT TOOK MEDICATIONS WITHOUT PROBLEMS, PT BILAT LE CELLULITIS AND RIGHT UPPER THIGH BLISTER OPEN TO AIR- PT REQUESTED PAIN MEDICATION ONCE IN THE SHIFT - PT USED URINAL WITHOUT PROBLEMS 0245 PT REPORTED CHEST PAIN/ PRESSURE 05/30- CALL TO DR. TONY - NEW ORDERS FOR TROPONIN, EKG, FENTANYL, GI COCKTAIL, AND NS 500ML BOLUS D/T HYPOTENSION, PT REPORTED PAIN DECREASED WHEN GIVING THE FENTANYL- BOLUS DONE = PT DENIES CP AND PRESSURE AT THAT TIME- PT SITTING UP IN BED WATCHING TV - SAFETY MEASURES IN PLACE
[2022-12-02 08:03] VITALS: BP 113/66
[2022-12-02 08:12] LABS: Hematocrit 28.8 % (37.0-53.0); Hemoglobin 9.6 g/dL (13.5-17.5); Mean Corpuscular HGB Conc 33.3 g/dL (31.5-36.5); Mean Corpuscular Volume 93 fL (80-100); Mean Platelet Volume 9.3 fL (9.1-12.4); Platelet Count 638 K/mm3 (150-400); RDW Coefficient Variation 13.9 % (11.7-14.2); RDW Standard Deviation 46.9 fL (35.1-46.3); White Blood Cell Count 12.78 K/mm3 (4.00-11.30)
[2022-12-02 08:37] LABS: Anion Gap 2 mmol/L (6-16); Blood Urea Nitrogen 51 mg/dL (8-24); Bun/Creatinine Ratio 34.5 (12.0-20.0); CO2, Blood 28 mmol/L (21-32); Calcium, Blood 7.6 mg/dL (8.5-10.1); Chloride, Blood 100 mmol/L (98-108); Creatinine, Blood 1.48 mg/dL (0.60-1.20); Glomerular Filtration Rate 52 (60-); Glucose, Blood 118 mg/dL (70-99); Potassium, Blood 3.7 mmol/L (3.5-5.5); Sodium, Blood 130 mmol/L (136-145)
[2022-12-02] MEDS ORDERED: LISI5 PO (13:56)
[2022-12-02] MEDS ORDERED: COREG12.5 MG PO (13:56)
[2022-12-02] MEDS ORDERED: TORSE20 PO (13:56)
[2022-12-02] MEDS ORDERED: ELIQUIS5 M2 PO (13:56)
[2022-12-02] MEDS ORDERED: DOXY100 PO (13:57)
[2022-12-02] MEDS ORDERED: OXAYDO5 M1 PO (13:58)
--- NOTE | 2022-12-02 14:23 | NUR ---
NOTES/DISCHARGE SUMMARY: PATIENT A&OX4. PLEASANT AND COOPERATIVE c CARE. ANXIOUS TO GO HOME. PATIENT IS REQUESTING TO GO HOME SINCE BEGINNING OF SHIFT. THIS RN EXPRESS CONCERN TO PATIENT c HIS CELLULITIS TO R UPPER LEG HARD, TIGHT AND SWELLING. IN ADDITION TO BLE'S CELLULITIS. EDUCATE PATIENT REGARDING THIS ISSUES AND HE WOULD BENIFIT FOR STAYING IN THE HOSPITAL ONE MORE DAY FOR IV ABX AND FURTHER ASSESSMENT ON R UPPER LEG SWELLING. PATIENT STATED UNDERSTANDING AND DECLINED TO STAY ONE MORE DAY. PER PATIENT "I WILL DISCHARGE MYSELF IF YOU GUYS WON'T RELEASE ME TODAY." THIS RN COMMUNICATE c PANEL ASSEMBLER YOSELYN BURDEN AND DR. VAZQUEZ HOSPITALIST REGARDING PATIENT REQUEST. PATIENT DECLINE TO SIT UP IN CHAIR FOR BREAKFAST AND LUNCH. RECEIVED SCHEDULED MEDS PER EMAR. DENIES CP/PRESSURE, SOB, N/V AND GENERALIZED PAIN. PATIENT USES URINAL INDEPENDENTLY AT BEDSIDE. VITAL SIGNS REVIEWED. IV TO R FOREARM DC'D BY [employer] CLEANER 2 BERNARDO LANG. PATIENT DISCHARGE HOME. DISCHARGE INSTRUCTION PACKET GIVEN TO PATIENT SISTER. EDUCATE PATIENT/SISTER REGARDING PATIENT ADMITTING DX, S/S, TX, PCP, AND NEW PRESCRIBED MEDICATIONS. PATIENT/SISTER STATED UNDERSTANDING AND NO FURTHER QUESTIONS. RX WAS FAXED TO PATIENT PREFERRED PHARMACY. ALL PATIENT PERSONNAL BELONGINGS WERE SENT HOME c THE PATIENT. PATIENT LEFT THE ROOM AT 1435. PATIENT WAS TRANSPORTED VIA WHEELCHAIR BY [employer] STAFF, BERNARDO LANG TO PATIENT SISTER PRIVATE VEHICLE.
== END 2022-12-02 14:36 | disposition home or self-care (01) | DRG 871 ==
LOC: MEDS 17:25 → ICUE 11-26 01:15 → PCU 11-27 03:21 → MEDS 11-30 10:37
PROVIDERS: Family Medicine; Internal Medicine; Nurse Practitioner Acute Care; Pharmacist; ADMIT Internal Medicine
DX: A41.9 Sepsis, unspecified organism (principal); I50.43 Acute on chronic combined systolic (congestive) and diastolic (congestive) heart failure; L03.115 Cellulitis of right lower limb; N17.9 Acute kidney failure, unspecified; E87.1 Hypo-osmolality and hyponatremia; I13.0 Hypertensive heart and chronic kidney disease with heart failure and stage 1 through stage 4 chronic kidney disease, or unspecified chronic kidney disease; I48.20 Chronic atrial fibrillation, unspecified; E87.20 Acidosis, unspecified; L03.116 Cellulitis of left lower limb; Z68.41 Body mass index [BMI] 40.0-44.9, adult; Z66 Do not resuscitate; R65.20 Severe sepsis without septic shock; E66.01 Morbid (severe) obesity due to excess calories; D46.9 Myelodysplastic syndrome, unspecified; F41.9 Anxiety disorder, unspecified; D63.1 Anemia in chronic kidney disease; N18.30 Chronic kidney disease, stage 3 unspecified; I45.10 Unspecified right bundle-branch block; F10.10 Alcohol abuse, uncomplicated; Z96.652 Presence of left artificial knee joint; I25.2 Old myocardial infarction; Z88.0 Allergy status to penicillin
CPT/HCPCS: 36415; 71046; 73701; 80048; 80053; 80202; 81001; 82803; 82947; 83605; 83735; 83880; 84100; 84132; 84443; 84484; 85025; 85027; 87040; 87077; 87086; 87186; 93005; 93010; 93970; 97110; 97162; 97530; A9270; C8929; J0690; J0696; J1644; J1940; J2405; J3010; J3370; J3480; J7040; J7050; Q9957; Q9967